=== PATIENT | male | born 1950 | race Caucasian/White ===

== ENCOUNTER 2016-03-07 11:51 | Day surgery (SDC) | payer BC ==
[~2016-03-07] VITALS: Ht 167.6 cm; Wt 99.5 kg
[~2016-03-07 11:51] MED LIST: CHANTIX0.5 MG PO; CILOSTAZOL50 MG PO; DIABETA5 MG PO; GLYBURIDE5 MG PO; JARDIANCE10 MG PO; LISINOPRIL10 MG PO; LISINOPRIL20 MG PO; LITE COAT ASPI325 M1 PO; LOPRESSOR25 MG PO; MAG-OXIDE400 MG PO; MEGACE40 MG PO; METFORMIN HCL1000 M1 PO; METFORMIN HCL1000 MG PO; PRILOSEC OTC20 MG PO; Plavix PO; Protonix PO; Tylenol Regular Stre PO; Zestril,Prinivil PO; Zocor PO
[2016-03-07 13:31] LABS: POINT-OF-CARE METER ID UU13113696
[2016-03-07 13:36] LABS: HEMATOCRIT 45.9 % (38.0-50.0); MCH 28.5 PG (29.0-34.0); MCHC 33.3 G/DL (30.0-36.0); MCV 85.6 FL (86-99); MEAN PLAT.VOLUME 10.6 uM^3 (9.0-12.4); PLATELET COUNT 267 K/uL (156-360); RBC DIS.WIDTH-CV 14.6 % (11.8-14.6); RBC DIS.WIDTH-SD 44.9 % (39-53); RED BLOOD COUNT 5.36 M/uL (4.00-5.50); WHITE BLOOD COUNT 9.6 K/uL (4.1-10.2)
[2016-03-07 13:43] LABS: ANION GAP 10 MEQ/L (2-14); CHLORIDE 101 MEQ/L (99-109); POTASSIUM 5.2 MEQ/L (3.7-5.4); SAMPLE HEMOLYSIS CHECK 1; SAMPLE ICTERIC CHECK 0; SAMPLE LIPEMIA CHECK 0; SODIUM 136 MEQ/L (136-147)
[2016-03-07 13:48] LABS: GFR ESTIMATE (CALCULATED) > 59 mL/min/; GLUCOSE 109 mg/dL (70-99); UREA NITROGEN (BUN) 30 mg/dL (9-23)
[2016-03-07 14:05] LABS: PTT 26.5 (25-32)
[2016-03-07 18:57] LABS: POINT-OF-CARE METER ID UU13113819
[2016-03-07 19:24] VITALS: BP 121/65
== END 2016-03-07 21:54 | disposition short-term general hospital (02) ==
LOC: CATH 11:51 → 4EAST 15:31
PROVIDERS: Internal Medicine Cardiovascular Disease
DX: I25.10 Atherosclerotic heart disease of native coronary artery without angina pectoris (principal); R07.9 Chest pain, unspecified; E78.5 Hyperlipidemia, unspecified; E11.9 Type 2 diabetes mellitus without complications; K21.9 Gastro-esophageal reflux disease without esophagitis
CPT/HCPCS: 80048; 82948; 85027; 85347; 85610; 85730; 93005; C1769; C1887; G0378; J1644; J2250; J3010; J7050